=== PATIENT | female | born 1930 | race Caucasian/White ===

== ENCOUNTER 2018-11-23 17:43 | Inpatient (IN) ==
--- NOTE | 2018-11-23 18:24 | Diag Imaging Result Doc PS360 ---
EXAM: FEMUR MIN 2 VIEWS LEFT 11/23/2018 HISTORY: fall/ pain TECHNIQUE: Left hip and femur five views COMMENT: There is a subcapital fracture of the femoral neck. There is no evidence of fracture otherwise. There is no dislocation. There is subchondral cyst formation in the patella. There are atherosclerotic calcifications in the distal superficial femoral and popliteal arteries. IMPRESSION: Fracture left femoral neck. Electronically signed by Chaparro Yarbrough 11/23/2018 6:22 PM
[2018-11-23] MEDS ORDERED: MORPHINE IV ONE (18:48)
[2018-11-23] MEDS ORDERED: TYLENOL PO PRN (19:44)
[2018-11-23] MEDS ORDERED: LOMOTIL PO PRN (19:51)
--- NOTE | 2018-11-23 20:43 | HISTORY AND PHYSICAL ---
PRIMARY CARE PROVIDER: Jack Hogan MD. CHIEF COMPLAINT: Fall with left hip and leg pain. HISTORY OF PRESENT ILLNESS: Ms. Wells is an 88-year-old female who lives by herself at an assisted living facility. Apparently she normally walks with a walker. On , she fell. She had some bruising on her left hip and elbow from the fall; however, she was continuing to walk up until today. It became more and more painful and she was unable to bear weight, so she came in to the Emergency Room. An x-ray was obtained, which showed a fracture of the left femoral neck. She will be admitted for further evaluation and treatment. PAST MEDICAL HISTORY: 1. Essential hypertension. 2. GERD. 3. Hyperlipidemia. 4. Hypothyroidism. 5. Seizure disorder. 6. Parkinson's disease. 7. Bronchiectasis. 8. Congestive heart failure with an ejection fraction around 30%. PREVIOUS SURGICAL HISTORY: None to note. FAMILY HISTORY: Father had a CVA. SOCIAL HISTORY: She is a , a former smoker but has not smoked in several years. No alcohol; no illicit drugs. ALLERGIES: To Prinivil. HOME MEDICATIONS: Nursing is working on reconciling a complete list. I believe the patient takes: 1. Singulair 10 mg. 2. DuoNeb q.6h. 3. Sinemet 25/100 b.i.d.. 4. Plavix 75 mg daily. 5. Digoxin 125 mcg daily. 6. Lasix 20 mg daily. 7. Keppra 500 mg b.i.d.. 8. Levothyroxine 100 mcg daily. 9. Losartan potassium 25 mg b.i.d.. 10.Nexium 40 mg daily. 11.Evista 60 mg daily. 12.Spironolactone 12.5 mg daily. REVIEW OF SYSTEMS: A full 14-point review of systems was conducted with the patient. Pertinent positives are listed above in the HPI. All other systems are reviewed and found to be negative. PHYSICAL EXAMINATION: VITAL SIGNS: Temperature 98.1 degrees, pulse 89, respirations 18, blood pressure 148/66, oxygen saturation 95% on 2 liters nasal cannula oxygen. GENERAL: A pleasant, frail, ill-appearing, 88-year-old female lying on the ER stretcher. She is in no acute distress. GENERAL: A pleasant 66-year-old female lying in the ER stretcher. Answers all questions appropriately. at bedside, very attentive. She is in no acute distress. HEENT: Head is atraumatic, normocephalic. Pupils are equal, round, and reactive to light. Extraocular eye movements are intact. Sclerae are nonicteric. Conjunctivae are pink. Oral mucosa is moist. NECK: Supple. No JVD, no thyromegaly. Trachea is midline. No carotid bruits. CARDIAC: S1 and S2 appreciated. No murmurs, gallops or rubs. LUNGS: Decreased bilaterally. No rhonchi, wheezes, or rales. Symmetric rise and fall with respirations. ABDOMEN: Soft, nondistended, nontender. Bowel sounds present in all 4 quadrants. No pulsatile masses. No organomegaly. EXTREMITIES: Trace pitting edema bilateral lower extremities mid paez to foot. Pedal pulses are 2+. Left lower extremity is slightly shorter than the right. NEUROLOGICAL: Oriented to person, place and situation. Somewhat disoriented to time. No focal motor deficits. Otherwise nonfocal examination. DIAGNOSTIC DATA: Femur x-ray shows a left femoral neck fracture. CBC and CMP, coags are pending. ASSESSMENT AND PLAN: 1. Left femoral neck fracture. Consult Dr. Cunningham. Anitha greco if Orthopedics recommends. NPO after midnight. We will give gentle fluid hydration from midnight to 8 a.m.. Monitor patient's fluid volume status. She has congestive heart failure. 2. Congestive heart failure with no exacerbation. Aware. Will monitor fluid status. 3. Hyperlipidemia. We will continue statin. Check lipid profile. 4. Hypothyroidism. Continue Synthroid. Check TSH. Further recommendations per patient's clinical course. Dictated by NABILA Farris for Deo Domingo MD cc: NABILA Farris MD M. Neel Roberts, MD
--- NOTE | 2018-11-23 20:46 | PROVIDER DOCUMENTATION ---
This chart was entered by Nyla Villanueva Scribe, acting as scribe for Faisal Bedolla MD. HPI-Musculoskeletal Pain/Inj - GENERAL Chief Complaint: Hip Injury Stated Complaint: FALL AT HOME 2 DAYS AGO, BODY PAIN Time Seen by Provider: 11/23/18 18:01 Source: patient - HX OF PRESENT ILLNESS-MUSKULOSKELTAL Nature of Presenting Problem: Pt is 88/F presenting to ED w/ L hip and leg pain. Pt sts that on she was using her walker and fell. She has some bruising to L hip and L elbow from fall. Sts that she could walk until today. Pt lives in assisted living, but is completely independent hx of CHF Quality of Pain: reports: aching Severity in ED: moderate Onset/Duration: 3 days ago Timing: still present Modifying Factors: improves with: nothing Any recent injury?: Yes Locality of Occurance: Home Similar Symptoms Previously?: No Recently seen or treated by another doctor?: No - FALL INJURY Location of Pain/Injury: reports: upper extremity (L elbow bruising), lower extremity (L hip and leg pain w/ bruising) Pain Radiation: reports: no radiation Reason for Fall: reports: slipped Symptoms prior to fall:: reports: none Loss of Consciousness: no loss of consciousness Injury Associated Symptoms: reports: denies symptoms Review of Systems - Adult - REVIEW OF SYSTEMS - ADULT Constitutional: reports: no symptoms reported. denies: chills, fever Eyes: reports: no symptoms reported Ears, Nose, Mouth & Throat: reports: no symptoms reported Cardiovascular: reports: no symptoms reported Respiratory: reports: no symptoms reported Gastrointestinal: denies: abdominal pain, nausea, vomiting Genitourinary: reports: no symptoms reported Musculoskeletal: reports: no symptoms reported Integumentary: reports: no symptoms reported Neurological: reports: no symptoms reported. denies: dizziness/vertigo, headache/migraines Psychiatric: reports: no symptoms reported Endocrine: reports: no symptoms reported Hematologic/Lymphatic: reports: no symptoms reported Allergic/Immunologic: reports: no symptoms reported All Other Systems: Reviewed and Negative Past History - Adult - PAST MEDICAL HISTORY-ADULT Review of Records: reports: Old Records Reviewed, Nursing Assessment Review, Medications Reviewed, Social history reviewed & non-contributory. Major Childhood Illnesses: reports: denies history Cardiovascular: reports: CHF, HTN Respiratory: reports: denies history Gastrointestinal: reports: denies history Obstetrical/Gynecological: reports: denies history Genitourinary: reports: denies history Musculoskeletal: reports: denies history Neurological: reports: denies history Psychiatric: reports: denies history Endocrine/Immune: reports: denies history Other Conditions: reports: denies history - PRIOR SURGERIES/PROCEDURES Surgical/Procedure History: reports: reviewed, not pertinent - IMMUNIZATION STATUS Childhood Immunizations: See Nurse Assessment Flu Vaccine: See Nurse Assessment - FAMILY HISTORY Family History: reviewed, not pertinent - SOCIAL HISTORY Smoking: denies, non-smoker Substance Use: none/never Alcohol Use Frequency: never Living Situation: alone Physical Exam-Injury Related - Physical Exam-Injury Related Initial Vital Signs Reviewed: Yes General Appearance: alert, no apparent distress Eyes: PERRL/EOMI Head, Ears, Nose, Mouth & Throat: normocephalic/atraumatic, moist mucous membranes, normal ENT inspection, TMs normal Neck: non-tender, full range of motion, supple, normal inspection Respiratory: chest non-tender, lungs clear, normal breath sounds Cardiovascular: normal peripheral pulses, regular rate, rhythm, no edema Abdominal Exam: normal bowel sounds, non tender, soft Back Exam: normal inspection, no CVA tenderness, no vertebral tenderness Extremity: tenderness (L hip w/ some shortening to L leg), other (Neurovacular exam N/L B/L LE) Integumentary: normal color, warm/dry Neurologic: grossly normal - Glascow Coma Score [place] Total: 15 Progress - PLAN OF CARE/RESULTS Progress/Plan/Lab Results: Vital Signs - 8 hr 11/23/18 17:47 11/23/18 19:00 11/23/18 19:33 Temperature 98.1 F Pulse Rate 89 Respiratory Rate 18 Blood Pressure 148/66 149/73 151/75 O2 Sat by Pulse Oximetry 93 L 94 L 94 L 11/23/18 20:01 Temperature Pulse Rate Respiratory Rate Blood Pressure 164/71 O2 Sat by Pulse Oximetry 95 Orders Category Date Time Status Admit - [facility] Routine AdmDCTranf 11/23/18 19:44 Active Activity - Strict Bedrest ORDERED Care 11/23/18 19:44 Active Apply Mechanical Device [QM] ORDERED Care 11/23/18 19:44 Active Continue Mann ORDERED Care 11/23/18 20:06 Active Mann Cath Insertion ORDERED Care 11/23/18 20:06 Active Intake and Output-Strict ORDERED Care 11/23/18 19:44 Active Misc. NRSG Communication Order DIRECTED Care 11/23/18 19:47 Active Nursing- MD Consult Request ROUTINE Care 11/23/18 19:45 Active Saline Loc NOW Care 11/23/18 18:51 Active Update & Confirm Home Medicati ROUTINE Care 11/23/18 19:43 Active Vital Signs Order Q 8-HR ASSESS Care 11/23/18 19:44 Active Z-Document. for Tele Applied ORDERED Care 11/23/18 19:44 Active Physician/Provider Consults Routine Cons 11/23/18 19:44 Ordered NPO Diet 11/24/18 00:01 Active FEMUR MIN 2 VIEWS LEFT [RAD] Stat Exams 11/23/18 18:15 Completed CBC WITH DIFF [HEME] Stat Lab 11/23/18 19:43 Ordered COMPREHENSIVE METABOLIC PANEL [CHEM] Stat Lab 11/23/18 19:43 Ordered PROTIME WITH INR [COAG] Stat Lab 11/23/18 19:43 Ordered PTT [COAG] Stat Lab 11/23/18 19:43 Ordered TSH Routine Lab 11/24/18 06:00 Uncollected TYPE & SCREEN [BBK] Stat Lab 11/23/18 19:43 Ordered 0.9% Sodium Chloride Inj [Ns] 1,000 ml Med 11/24/18 00:00 Active IV 50 mls/hr Acetaminophen [Tylenol] Med 11/23/18 19:44 Active 650 mg PO Q6H PRN PRN Albuterol 2.5MG/Ipratrop 0.5MG [Duoneb (A & A)] Med 11/23/18 22:00 Active 3 ml INH RTQ6H Aspirin EC Med 11/24/18 09:00 Active 81 mg PO DAILY Carbidopa/Levodopa [Sinemet 10/100] Med 11/23/18 21:00 Ordered 1 each PO BID Citalopram [Celexa] Med 11/24/18 09:00 Ordered 20 mg PO DAILY Clopidogrel [Plavix] Med 11/24/18 09:00 Ordered 75 mg PO DAILY Digoxin [Lanoxin] Med 11/24/18 09:00 Ordered 125 microgm PO DAILY Diphenoxylate/Atropine [Lomotil] Med 11/23/18 19:51 Ordered DOSE each PO 4XDAY PRN PRN Furosemide [Lasix] Med 11/24/18 09:00 Active 40 mg PO DAILY Levetiracetam [Keppra] Med 11/24/18 09:00 Active 500 mg PO DAILY Levothyroxine [Synthroid] Med 11/24/18 07:00 Ordered 100 microgm PO DAILY@0700 Losartan [Cozaar] Med 11/23/18 21:00 Ordered 25 mg PO BID Montelukast [Singulair] Med 11/23/18 21:00 Ordered 10 mg PO QHS Morphine Med 11/23/18 19:48 Active 2 mg IV Q3H PRN PRN Morphine Med 11/23/18 18:48 Discontinued 6 mg IV NOW ONE Ondansetron [Zofran] Med 11/23/18 19:44 Active 4 mg IV Q4H PRN PRN Pantoprazole [Protonix] Med 11/23/18 20:00 Active 40 mg IV Q24H Raloxifene [Evista] Med 11/24/18 09:00 Ordered 60 mg PO DAILY Sodium Chloride 0.9% Med 11/23/18 20:00 Active 10 ml INJ DIRECTED Spironolactone [Aldactone] Med 11/24/18 09:00 Ordered 12.5 mg PO DAILY Vitamin E Med 11/24/18 09:00 Ordered DOSE units PO DAILY Aerosol Treatments Routine Oth 11/23/18 19:52 Active Aerosol Treatments Stat Oth 11/23/18 19:52 Active Telemetry [OM.EQ] Routine Oth 11/23/18 19:44 Active Transfer/Admit Order [TRANSFER] Routine Transfer 11/23/18 19:48 Ordered - CONSULTS/PCP/HOSPITALIST Notification #1 *Consult/PCP/Hospitalist*: Dr. Lloyd Time Discussed: 18:40 Consult Disposition: Admit (Discuss case with Dr. Lloyd, advise to admit and he will see her in the morning.) #2 Consult: Dr. Domingo Time Discussed: 19:14 Consult Disposition: Admit (Hx, PE and patient care discussed, admitted.) Departure - Departure Date of Disposition Decision: 11/23/18 Time of Disposition Decision: 19:14 DIAGNOSIS: Fracture of femoral neck, left Qualifiers: Encounter type: initial encounter Fracture type: closed Qualified Code(s): S72.002A - Fracture of unspecified part of neck of left femur, initial encounter for closed fracture Disposition: ADMITTED INPATIENT 09 Certified Medical Emergency: Emergent Condition: Stable - Critical Care Note This patient required my direct & personal management of CC.: No Attestation - Physician/ ESEQUIEL Attestation Patient care was provided by Advanced Practice Provider:: No The physician spent face to face time with patient:: Yes Advanced Practice Provider documentation review:: Supervising physician onsite and consulted in the evaluation and care of this patient. The physician did have a face to face encounter with the patient. This chart was documented by the indicated scribe, (Nyla Villanueva, Silvia) and accurately reflects the services I performed and decisions made by me, Faisal Bedolla MD, as attested by the provider's signature.
--- NOTE | 2018-11-23 21:39 | HISTORY AND PHYSICAL ---
ADDENDUM: Patient seen and examined by myself in the ER. Full note dictated and discussed with nurse practitioner. Patient presented to the hospital with hip pain. Interestingly, she fell 3 days ago and just told the family today. They noted that she was limping bad and stated that she was having pain and they brought her to the ER where she was subsequently diagnosed with left hip fracture. The patient currently is in control. We will admit her to the hospital and follow. Consult Ortho. cc: MD Jack Wiseman MD
[2018-11-23] MEDS: DUONEB (A & A) INH SCH (22:13)
[2018-11-23 22:22] LABS: BASO# 0.03 X1000 (0.0-0.2); BASO% 0.3 % (0.0-0.8); EOS# 0.18 X1000 (0.0-0.7); HEMATOCRIT 35.9 % (37.0-47.0); HEMOGLOBIN 12.5 g/dL (12.0-16.0); IMM GRAN# 0.02 X1000 (0.0-0.04); IMM GRAN% 0.2 % (0.0-0.5); LYMPH# 1.61 X1000 (1.2-3.4); LYMPH% 18.2 % (20.5-51.1); MCH 30.2 PG (27-31); MCHC 34.8 g/dL (33-37); MCV 86.7 FL (81-99); MONO# 1.31 X1000 (0.11-0.59); MONO% 14.8 % (1.7-9.3); MPV 8.9 FL (7.4-10.4); NEUT# 5.72 X1000 (1.4-6.5); NEUT% 64.5 % (42.2-75.2); PLT 238 X1000 (130-400); RBC 4.14 XMIL (4.2-5.4); RDW 11.8 % (11.5-14.5); WBC 8.87 X1000 (4.8-10.8)
[2018-11-23] MEDS: MORPHINE IV PRN (22:30)
[2018-11-23] MEDS: COZAAR PO SCH (22:30)
[2018-11-23] MEDS: SINEMET 10/100 PO SCH (22:30)
[2018-11-23] MEDS: PROTONIX IV SCH (22:31)
[2018-11-23] MEDS: SINGULAIR PO SCH (22:31)
[2018-11-23] MEDS: NS 1,000 ML IV SCH (22:31)
[2018-11-23 22:46] LABS: INR 1.01; PROTIME 14.1 Seconds (11.0-16.0)
[2018-11-23 22:47] LABS: PTT 35.6 Seconds (22.3-41.8)
[2018-11-23 22:55] LABS: AGAP 10; ALB/GLOB RATIO 1.3; ALBUMIN 3.5 g/dL (3.5-5.0); ALKALINE PHOSPHATASE 48 U/L (32-104); BUN 16 mg/dL (8-22); CALCIUM 7.8 mg/dL (8.8-10.2); CHLORIDE 94 mmol/L (98-107); COSMO 260; CREATININE 0.8 mg/dL (0.5-0.9); ESTIMATED GFR > 60; GLUCOSE 102 mg/dL (70-104); GOT 11 U/L (10-30); GPT 7 U/L (10-36); SODIUM 129 mmol/L (136-145); TCO2 25 mmol/L (25-35); TOTAL BILIRUBIN 0.46 mg/dL (0.20-1.00); TOTAL PROTEIN 6.1 g/dL (6.3-8.3)
[2018-11-23 22:56] LABS: CHOLESTEROL 165 mg/dL (0-200); HDL 53 mg/dL (45-65); LDL 97 mg/dL; TRIGLYCERIDES 76 mg/dL (35-135); VLDL 15 mg/dL
[2018-11-24] MEDS: NS 1,000 ML IV SCH (01:00)
[2018-11-24 03:21] LABS: URINE SOURCE CATH
[2018-11-24 03:26] LABS: BILIRUBIN URINE NEGATIVE (NEGATIVE); BLOOD URINE NEGATIVE (NEGATIVE); COLOR YELLOW; GLUCOSE URINE NEGATIVE (NEGATIVE); KETONE URINE NEGATIVE (NEGATIVE); LEUKOCYTES URINE NEGATIVE (NEGATIVE); NITRITE URINE NEGATIVE (NEGATIVE); PH URINE 5.5; PROTEIN URINE NEGATIVE (NEGATIVE); TURBIDITY URINE CLEAR (CLEAR); UR EPITHELIAL CELLS <10 /HPF (<10); URINE BACTERIA NEGATIVE /HPF; URINE RBC <10 /HPF (<10); URINE WBC <10 /HPF (<10); UROBILINOGEN URINE NORMAL (NORMAL)
[2018-11-24] MEDS: SYNTHROID PO SCH (06:00)
[2018-11-24] MEDS ORDERED: PLAVIX PO SCH (09:00)
[2018-11-24] MEDS: KEPPRA PO SCH (09:41)
[2018-11-24] MEDS: COZAAR PO SCH ×2 (09:41→20:32)
[2018-11-24] MEDS: DUONEB (A & A) INH SCH ×3 (10:15→21:30)
--- NOTE | 2018-11-24 11:06 | ORTHOPAEDICS CONSULTATION ---
DATE: 11/24/2018 CHIEF COMPLAINT: Left hip pain. HISTORY OF PRESENT ILLNESS: This is an 88-year-old female, status post a fall several days ago, presented to the hospital with left hip pain. She was found to have an impacted left femoral neck fracture, and admitted for orthopedic consultation. She complains of pain and tenderness about the left hip. She denies any other complaints. PAST MEDICAL HISTORY: Significant for hypertension, hyperlipidemia, hypothyroidism, seizure disorder, Parkinson's, bronchitis, heart failure, and reflux. PAST SURGICAL HISTORY: She does not have any significant previous surgical history. FAMILY HISTORY: Unremarkable. REVIEW OF SYSTEMS: Relatively negative, other than left hip and groin pain. PHYSICAL EXAMINATION: Examination reveals her to be alert and oriented at the present time. She has pain and tenderness about the left hip on passive motion. There is no deformity. Leg lengths were relatively equal. There are no motor or sensory deficits. She is nontender about the remainder of the lower extremity. IMAGING: X-rays were reviewed and show an impacted femoral neck fracture. IMPRESSION: Impacted left femoral neck fracture. PLAN: I have discussed treatment options with the patient. She already has had some stability about the hip, and we have discussed proceeding with percutaneous pinning of the hip to see if it will heal without a hip replacement. She is aware of the risks, including the fact that it may progress to a nonunion or avascular necrosis or fail to heal. Any of these would require conversion to a total hip at a later date. We discussed additional risks, such as bleeding, infection, damage to tendon, nerve, or blood vessel, loss of limb or life, and other imponderables. She understands this and is willing to proceed. Will make arrangements to go ahead and proceed with this in the near future either by myself or Dr. Fang. cc: MD Jack Mak MD
[2018-11-24] MEDS: VITAMIN E PO SCH (11:59)
[2018-11-24] MEDS: ALDACTONE PO SCH (11:59)
[2018-11-24] MEDS: EVISTA PO SCH (11:59)
[2018-11-24] MEDS: ASPIRIN EC PO SCH (11:59)
[2018-11-24] MEDS: CELEXA PO SCH (11:59)
[2018-11-24] MEDS: LANOXIN PO SCH (12:00)
[2018-11-24] MEDS: LASIX PO SCH (12:00)
[2018-11-24] MEDS: SINEMET 10/100 PO SCH ×2 (12:00→20:21)
[2018-11-24] MEDS: MORPHINE IV PRN ×2 (16:53→20:22)
[2018-11-24] MEDS: SINGULAIR PO SCH (20:21)
[2018-11-24] MEDS: PROTONIX IV SCH (20:29)
[2018-11-25] MEDS: ZOFRAN IV PRN ×3 (00:14→17:54)
[2018-11-25] MEDS: DUONEB (A & A) INH SCH ×5 (03:49→22:00)
[2018-11-25] MEDS: SYNTHROID PO SCH (06:46)
--- NOTE | 2018-11-25 08:56 | ORTHOPAEDICS PROGRESS NOTE ---
DATE: 11/25/2018 Ms. Wells was seen today for her hip fracture. We will plan on pinning her hip approximately lunchtime or early afternoon today. Risks benefits were discussed and she is willing to proceed. She is marked. We will plan on proceeding with pinning of the hip today. cc: MD Jack Mak MD
[2018-11-25] MEDS: LANOXIN PO SCH (09:41)
[2018-11-25] MEDS: KEPPRA PO SCH (09:41)
[2018-11-25] MEDS: SINEMET 10/100 PO SCH ×2 (09:41→22:44)
[2018-11-25] MEDS ORDERED: NEO-SYNEPHRINE ONE (11:28)
[2018-11-25] MEDS ORDERED: AMIDATE ONE (11:28)
[2018-11-25] MEDS ORDERED: XYLOCAINE-MPF 2% ONE (11:28)
[2018-11-25] MEDS ORDERED: ZOFRAN ONE (11:28)
[2018-11-25] MEDS ORDERED: OFIRMEV 1000 MG/ISOTONIC SOLN 1,000 MG/100 ML BOTTLE ONE (11:28)
[2018-11-25] MEDS ORDERED: DECADRON ONE (11:28)
[2018-11-25] MEDS ORDERED: STERILE WATER INJ. ONE (11:28)
[2018-11-25] MEDS ORDERED: KEFZOL 1 GM/D5W 1 GM/50 ML IVPB ONE (11:37)
--- NOTE | 2018-11-25 13:02 | OPERATIVE NOTE ---
PROCEDURE DATE: PREOPERATIVE DIAGNOSIS: Impacted left femoral neck fracture. POSTOPERATIVE DIAGNOSIS: Impacted left femoral neck fracture. PROCEDURE: Closed reduction, percutaneous fixation, left hip. SURGEON: Presley Cunningham MD. ANESTHESIA: General. COMPLICATION: None. PROCEDURE IN DETAIL: This 88-year-old female with impacted left femoral neck fracture presents for surgical reduction and fixation. Risks, benefits, and no guarantees were discussed, and she is willing to proceed. She was taken to the operating room and satisfactory anesthesia obtained. The left hip was prepped and draped on the Tow table in usual sterile fashion. A time-out was taken to confirm operative site, procedure, and patient. Afterwards, a C-arm was used to verify accurate reduction of the impacted femoral neck fracture. A 1 inch incision was made opposite the lesser trochanter along the lateral thigh. Dissection was carried down to the lateral aspect of the proximal femur. Under multiplanar image guidance, three 7.3 cannulated screws were placed across the fracture and into the central aspect of the femoral head. Care was taken to avoid any articular penetration. The screws were then measured and replaced with 380 mm partially threaded 7.3 cancellous screws. All 3 screws had good secure fixation. The guidewire was removed and the C-arm used to verify accurate fracture reduction and hardware placement. The guidewire was removed and the incision irrigated and closed in layers with 2-0 Vicryl and skin chevy. Sterile dressings completed the closure and the patient was recovered from anesthesia and transferred to the recovery room in stable condition. No intraoperative complications were noted. Instrument count and sponge count were correct at the time of closure. cc: MD Jack Mak MD
[2018-11-25] MEDS ORDERED: MILK OF MAGNESIA PO PRN (13:45)
[2018-11-25] MEDS ORDERED: ZOFRAN IV PRN (13:45)
[2018-11-25] MEDS ORDERED: HALDOL IV PRN (13:45)
[2018-11-25] MEDS ORDERED: MORPHINE IV PRN (13:45)
[2018-11-25] MEDS: MORPHINE IV PRN (13:48)
[2018-11-25] MEDS: NS 1,000 ML IV SCH (15:09)
[2018-11-25] MEDS: LASIX PO SCH (15:13)
[2018-11-25] MEDS: ASPIRIN EC PO SCH (15:13)
[2018-11-25] MEDS: EVISTA PO SCH (15:13)
[2018-11-25] MEDS: CELEXA PO SCH (15:13)
[2018-11-25] MEDS: COZAAR PO SCH (15:14)
[2018-11-25] MEDS: VITAMIN E PO SCH (15:14)
[2018-11-25] MEDS: ALDACTONE PO SCH (15:14)
[2018-11-25] MEDS: PROTONIX IV SCH (19:59)
[2018-11-25] MEDS: SODIUM CHLORIDE 0.9% INJ SCH (19:59)
[2018-11-25] MEDS: KEFZOL 1 GM/D5W 1 GM/50 ML IVPB IV SCH (20:00)
[2018-11-25] MEDS: COLACE PO SCH (22:44)
[2018-11-25] MEDS: SINGULAIR PO SCH (22:44)
[2018-11-25] MEDS: PERIDEX MT SCH (22:45)
[2018-11-26] MEDS: COZAAR PO SCH ×3 (00:51→20:17)
[2018-11-26] MEDS: TYLENOL PO SCH ×4 (01:09→23:27)
[2018-11-26] MEDS: DUONEB (A & A) INH SCH ×4 (03:00→21:50)
[2018-11-26] MEDS: KEFZOL 1 GM/D5W 1 GM/50 ML IVPB IV SCH (05:01)
[2018-11-26 06:25] LABS: HEMATOCRIT 34.5 % (37.0-47.0); HEMOGLOBIN 11.5 g/dL (12.0-16.0)
[2018-11-26] MEDS: SYNTHROID PO SCH (06:28)
[2018-11-26 06:50] LABS: CALCIUM 8.2 mg/dL (8.8-10.2); POTASSIUM 3.7 mmol/L (3.5-5.1)
[2018-11-26] MEDS ORDERED: SALINE LOCK IV FLUID XX ONE (07:52)
[2018-11-26] MEDS ORDERED: PHENERGAN IV PRN (07:54)
[2018-11-26] MEDS ORDERED: SODIUM CHLORIDE 0.9% INJ PRN (07:54)
[2018-11-26] MEDS ORDERED: FLEET ENEMA PR ONE (07:54)
--- NOTE | 2018-11-26 08:30 | PROGRESS NOTE ---
DATE: 11/26/2018 SUBJECTIVE: Ms. Wells has a longstanding history of hypertension. Her blood pressure is stable. This morning, her blood pressure was 128/58. She denies any chest pain, palpitations, or anginal equivalents. She is postoperative day #1 following closed reduction and percutaneous fixation of the left hip. She had fallen and sustained an impacted left femoral neck fracture. Pain is well controlled on morphine. She is continuing with persistent nausea. Her appetite is poor. OBJECTIVE: She is afebrile. Vital signs are stable. CV: Regular rate and rhythm. Lungs: Clear. Abdomen: Soft and nontender, with active bowel sounds. ASSESSMENT AND PLAN: 1. Hypertension. Her blood pressure is stable. We will continue her current regimen of medications. 2. Impacted left femoral neck fracture, status post closed reduction with percutaneous fixation of the left hip. We have consulted physical therapy for physical therapy evaluation. client services vice president has been consulted for short-term rehab placement. The family is interested in [facility] in [place]. We will transition her to oral pain medicines as indicated. 3. Constipation. I will give her a mineral oil enema. cc: Jack Hogan MD
[2018-11-26] MEDS: ASPIRIN EC PO SCH (09:06)
[2018-11-26] MEDS: SINEMET 10/100 PO SCH ×2 (09:06→20:17)
[2018-11-26] MEDS: ALDACTONE PO SCH (09:06)
[2018-11-26] MEDS: PERIDEX MT SCH (09:06)
[2018-11-26] MEDS: LASIX PO SCH (09:07)
[2018-11-26] MEDS: VITAMIN E PO SCH (09:07)
[2018-11-26] MEDS: FERROUS SULFATE PO SCH (09:07)
[2018-11-26] MEDS: LANOXIN PO SCH (09:08)
[2018-11-26] MEDS: EVISTA PO SCH (09:08)
[2018-11-26] MEDS: KEPPRA PO SCH (09:08)
[2018-11-26] MEDS: CELEXA PO SCH (09:08)
--- NOTE | 2018-11-26 14:30 | ORTHOPAEDICS PROGRESS NOTE ---
DATE: 11/26/2018 SUBJECTIVE: Ms. Wells is seen status post percutaneous pinning of the hip. OBJECTIVE: Vital signs: She is afebrile with stable vital signs. Extremities: Her bandage is clean and dry. She is resting comfortably at the current time. PLAN: She can be transferred to rehab tomorrow. She needs to be partial to touchdown weightbearing on the left lower extremity. We will need to follow up with her in roughly 2 weeks for staple removal and follow-up x-rays. cc: MD Jack Mak MD
[2018-11-26] MEDS ORDERED: BLISTEX MEDICATED BERRY LIP BALM TOP PRN (15:21)
[2018-11-26] MEDS: OXY IR PO PRN ×2 (15:28→20:17)
[2018-11-26] MEDS: NS 1,000 ML IV SCH (18:05)
[2018-11-26] MEDS: SODIUM CHLORIDE 0.9% INJ SCH (20:16)
[2018-11-26] MEDS: SINGULAIR PO SCH (20:16)
[2018-11-26] MEDS: PROTONIX IV SCH (20:16)
[2018-11-26] MEDS: COLACE PO SCH (20:16)
[2018-11-26] MEDS: MYCOSTATIN SUSP PO SCH (20:16)
[2018-11-27] MEDS: DUONEB (A & A) INH SCH ×4 (03:00→21:23)
[2018-11-27 06:06] LABS: HEMATOCRIT 31.6 % (37.0-47.0); HEMOGLOBIN 10.7 g/dL (12.0-16.0)
[2018-11-27] MEDS: SYNTHROID PO SCH (06:40)
[2018-11-27] MEDS: TYLENOL PO SCH ×2 (06:40→13:40)
[2018-11-27] MEDS: COZAAR PO SCH (09:23)
[2018-11-27] MEDS: ASPIRIN EC PO SCH (09:23)
[2018-11-27] MEDS: PERIDEX MT SCH (09:23)
[2018-11-27] MEDS: FERROUS SULFATE PO SCH (09:24)
[2018-11-27] MEDS: ALDACTONE PO SCH (09:24)
[2018-11-27] MEDS: KEPPRA PO SCH (09:25)
[2018-11-27] MEDS: SINEMET 10/100 PO SCH ×2 (09:26→22:24)
[2018-11-27] MEDS: CELEXA PO SCH (09:26)
[2018-11-27] MEDS: EVISTA PO SCH (09:26)
[2018-11-27] MEDS: LASIX PO SCH (09:26)
[2018-11-27] MEDS: MYCOSTATIN SUSP PO SCH ×3 (09:27→22:25)
[2018-11-27] MEDS: LANOXIN PO SCH (09:27)
[2018-11-27] MEDS: VITAMIN E PO SCH (09:28)
[2018-11-27] MEDS: PLAVIX PO SCH (09:30)
--- NOTE | 2018-11-27 13:40 | Diag Imaging Result Doc PS360 ---
EXAM: CHEST-PORTABLE 11/27/2018 HISTORY: rehab placement TECHNIQUE: AP portable at 1330 COMMENT: There are ill-defined opacities mostly peripherally in both lungs including the left costophrenic sulcus region and lateral right upper lobe. The heart size and primary vascularity are within normal limits. Compared to 08/24/2018 there has been no significant change. There has been no significant change since 05/14/2018. IMPRESSION: Pulmonary fibrosis. No evidence of acute disease. Electronically signed by Chaparro Yarbrough 11/27/2018 1:38 PM
--- NOTE | 2018-11-27 15:51 | DISCHARGE SUMMARY ---
ADMISSION DATE: 11/23/2018 DISCHARGE DATE: 11/27/2018 DISCHARGE DIAGNOSES: 1. Left impacted femoral neck fracture, status post closed reduction and percutaneous fixation. 2. Primary hypothyroidism. 3. Parkinson's disease. 4. History of complex partial seizures. 5. Essential hypertension. 6. Chronic bronchiectasis. 7. Paroxysmal atrial fibrillation. 8. 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 DISCHARGE INSTRUCTIONS: 1. The patient will be transferred via ambulance to [facility] in order to undergo short-term rehab. 2. Activity as tolerated. 3. Healthy heart diet. MEDICATIONS: 1. OxyIR 5 mg q.6 hours p.r.n. INCOMPLETE REPORT -- DICTATION ENDED HERE cc: Jack Hogan MD
--- NOTE | 2018-11-27 17:27 | DISCHARGE SUMMARY ---
ADMISSION DATE: 11/23/2018 DISCHARGE DATE: 11/28/2018 DISCHARGE DIAGNOSES: 1. Impacted left femoral neck fracture status post closed reduction and percutaneous fixation. 2. Essential hypertension. 3. Bronchiectasis. 4. Seizure disorder. 5. Parkinson disease. 6. Depression. 7. Chronic iron deficiency anemia. 8. Gastroesophageal reflux disease. 9. Primary hypothyroidism. 10. Osteoporosis. 11. Paroxysmal atrial fibrillation. 12. 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 DISCHARGE INSTRUCTIONS: 1. The patient will be transferred via ambulance to [facility] in order to undergo short-term rehab. 2. Activity as tolerated. 3. Healthy heart diet. 4. Medications: OxyIR 5 mg q.6 hours p.r.n. pain, ferrous sulfate 325 mg daily for 30 days, Plavix 75 mg daily, pantoprazole 40 mg daily, Tylenol 1000 mg q.8 hours, Colace 200 mg daily, DuoNeb nebulize q.6 hours, levothyroxine 100 mcg daily, Singulair 10 mg daily, Evista 60 mg daily, aspirin 81 mg daily, Nexium 40 mg daily, Sinemet 10/100 b.i.d., digoxin 125 mcg daily, Lasix 40 mg daily, Losartan 25 mg b.i.d., spironolactone 12.5 mg b.i.d., Keppra 500 mg daily, Celexa 20 mg daily. EXAMINATION: General: This is an elderly, frail 88-year-old lady in no apparent distress. Vital Signs: She is afebrile. Vital signs are stable. Cardiovascular: Regular rate and rhythm. Lungs: Clear. Abdomen: Soft, nontender, with active bowel sounds. HOSPITAL COURSE: Ms. Rosalinda Wells fell and sustained an impacted left hip fracture. The patient was admitted to [facility] for pain management. Orthopedic Surgery was consulted to see the patient. Dr. Cunningham performed a closed reduction/internal fixation of the aforementioned hip. She was transitioned off IV morphine and was switched to OxyIR as needed for pain. Physical therapy was consulted to see the patient and started range of motion studies and ambulation. We felt that she would benefit from short-term rehab and arrangements were made to transfer her to [facility]. She does have a history of bronchiectasis. She initially required oxygen postoperatively and we continued the nebulizer treatments. We were gradually able to wean her off oxygen and she was noted to have O2 sats of 97-98% on room air. She does have a history of chronic iron deficiency anemia. Her hemoglobin dropped from 35 to 31 postoperatively. We will treat her with ferrous sulfate 325 mg daily for 1 month and recheck a hemoglobin and hematocrit upon discharge. She does have a history of gastroesophageal reflux disease. She was continued on Nexium 40 mg daily. She has a history of paroxysmal atrial fibrillation. She remained in normal sinus rhythm. Her heart rate was well controlled on digoxin. She has a history of petit mal seizures. She was maintained on Keppra 500 mg daily. No seizure activity was noted during her hospitalization. She had acute urinary retention following nguyễn discontinuation. She required several in and out catherizations but residuals varied from 300 to 800. A nguyễn was inserted. We will perform bladder training in hopes of quick discontinuation of nguyễn. cc: Jack Hogan MD MTDD
[2018-11-27] MEDS: NS 1,000 ML IV SCH (17:31)
[2018-11-27] MEDS: SINGULAIR PO SCH (22:25)
[2018-11-28] MEDS: DUONEB (A & A) INH SCH (03:15)
[2018-11-28] MEDS: PERIDEX MT SCH ×2 (05:47→08:05)
[2018-11-28] MEDS: COLACE PO SCH (05:47)
[2018-11-28] MEDS: COZAAR PO SCH ×2 (05:47→08:06)
[2018-11-28] MEDS: TYLENOL PO SCH ×3 (05:48→14:17)
[2018-11-28 06:26] LABS: HEMATOCRIT 32.8 % (37.0-47.0); HEMOGLOBIN 11.2 g/dL (12.0-16.0)
[2018-11-28] MEDS ORDERED: PROTONIX PO SCH (07:00)
[2018-11-28] MEDS: SYNTHROID PO SCH (07:53)
[2018-11-28] MEDS: PLAVIX PO SCH (08:05)
[2018-11-28] MEDS: CELEXA PO SCH (08:05)
[2018-11-28] MEDS: LASIX PO SCH (08:05)
[2018-11-28] MEDS: ASPIRIN EC PO SCH (08:05)
[2018-11-28] MEDS: LANOXIN PO SCH (08:05)
[2018-11-28] MEDS: SINEMET 10/100 PO SCH (08:05)
[2018-11-28] MEDS: KEPPRA PO SCH (08:05)
[2018-11-28] MEDS: MYCOSTATIN SUSP PO SCH ×2 (08:06→14:16)
[2018-11-28] MEDS: EVISTA PO SCH (08:06)
[2018-11-28] MEDS: ALDACTONE PO SCH (08:06)
[2018-11-28] MEDS: FERROUS SULFATE PO SCH (08:06)
[2018-11-28] MEDS: VITAMIN E PO SCH (08:06)
[2018-11-28 08:07] VITALS: BP 152/69
--- NOTE | 2018-11-28 08:59 | PROGRESS NOTE ---
DATE: 11/28/2018 SUBJECTIVE: Ms. Wells is postoperative day #2 following closed reduction and internal fixation of a left hip fracture. Pain is well controlled on oral OxyIR. She is breathing comfortably. DIAGNOSTIC DATA: Chest x-ray demonstrated pulmonary fibrosis, consistent with bronchiectasis. PHYSICAL EXAMINATION: Blood pressure is stable. She is afebrile. Vital signs are stable. CV: Regular rate and rhythm. Lungs: Clear. Abdomen: Soft, nontender, with active bowel sounds. ASSESSMENT AND PLAN: 1. Left hip fracture. She has undergone successful surgical repair. We will continue physical therapy. She has been transitioned to oral pain medicines. We are awaiting on bed availability at [facility] for her to undergo short-term rehab. 2. Bronchiectasis. We will continue nebulizer treatments every 6 hours. cc: Jack Hogan MD
--- NOTE | 2018-11-28 09:02 | PROGRESS NOTE ---
DATE: 11/28/2018 SUBJECTIVE: Ms. Wells is postoperative day #3 following closed reduction with percutaneous fixation of the left hip following a left femoral neck fracture. Pain is well controlled with OxyIR. She is making steady progress with physical therapy. [facility] had not received prior authorization from her insurance [employer] for rehab as of late yesterday afternoon. Her blood pressure is stable. She denies any chest pain, palpitations, or anginal equivalents. She has had some urinary retention. She has required an in-and-out catheters overnight. PHYSICAL EXAMINATION: She is afebrile, pulse 62, respirations 20, BP 152/69. CV: Regular rate and rhythm. Lungs: Clear. Abdomen: Soft, nontender, with active bowel sounds. ASSESSMENT AND PLAN: 1. Left hip fracture, status post closed reduction with percutaneous fixation of the leg. We will continue OxyIR as needed for pain, and physical therapy. We are awaiting word as to whether she has been accepted for short-term rehab. 2. Urinary retention. I really do not want to place a Mann catheter if we do not have to. We will continue in-and-out catheters at this point in time. 3. Bronchiectasis. Clinically, she is doing well. Chest x-ray showed pulmonary fibrosis. We will continue nebulizer treatments. cc: Jack Hogan MD
[2018-11-28 11:32] LABS: URINE SOURCE CATH
[2018-11-28 11:36] LABS: BILIRUBIN URINE NEGATIVE (NEGATIVE); BLOOD URINE NEGATIVE (NEGATIVE); COLOR YELLOW; GLUCOSE URINE NEGATIVE (NEGATIVE); KETONE URINE NEGATIVE (NEGATIVE); LEUKOCYTES URINE TRACE (NEGATIVE); NITRITE URINE NEGATIVE (NEGATIVE); PH URINE 6.5; PROTEIN URINE NEGATIVE (NEGATIVE); TURBIDITY URINE CLEAR (CLEAR); UR EPITHELIAL CELLS <10 /HPF (<10); URINE BACTERIA NEGATIVE /HPF; URINE RBC <10 /HPF (<10); URINE WBC <10 /HPF (<10); UROBILINOGEN URINE NORMAL (NORMAL)
== END 2018-11-28 15:43 | DRG 481 ==
LOC: ED 17:43 → SUATTDRO 20:40 → 4N 20:40
PROVIDERS: ADMIT Internal Medicine; ATTEND Internal Medicine
CPT/HCPCS: 51702; 71010; 71045; 73552; 76000; 80048; 80053; 80061; 81001; 84443; 85014; 85018; 85025; 85610; 85730; 86850; 86900; 86901; 87088; 94640; 94760; 94761; 94799; 96374; 97110; 97116; 97162; 97166; 97530; 97535; 99285; A9270; C9113; J0131; J0690; J1100; J2270; J2370; J2405; J7030; S0164